=== PATIENT | male | born 1945 | race Caucasian/White ===

== ENCOUNTER 2022-08-21 11:44 | Emergency (ER) | payer OTHER, SELFPAY ==
[2022-08-21 11:46] VITALS: BP 180/120; PULSE 89; RESP 18; TEMP 36.8; O2SAT 95; BMI 25.8
--- NOTE | 2022-08-21 12:08 | ED.VIS.GI ---
HPI <LEESA Olivares - Last Filed: 08/21/22 22:00> HPI - GI History of Present Illness Chief Complaint: GI Bleed Narrative Narrative: Presents with bright red rectal bleeding that occurred earlier this morning while having a bowel movement. He states he noticed a small mass protruding from his anus that he was able to manually reduce. He states the bleeding has stopped since coming to the ED and he is not in any pain. He denies a history of hemorrhoids but states he does struggle with constipation at times. He denies abdominal pain, nausea, vomiting, fever, and diarrhea. PFSH <LEESA Olivares - Last Filed: 08/21/22 22:00> [facility] Home Medications NK 08/21/22 [History Last Taken Unknown] Allergy/AdvReac Type Severity Reaction Status Date / Time No Known Allergies Allergy Verified 08/21/22 11:45 Surgical History (Updated 08/21/22 @ 12:40 by Ghazal Borden) History of cataract surgery Social History Smoking Status: Former smoker ROS <LEESA Olivares - Last Filed: 08/21/22 22:00> ROS ED Constitutional Constitutional ED: Denies chills, fever(s) or sweats ENT ENT ED: Denies rhinorrhea or sore throat Cardiovascular Cardiovascular: Denies chest pain Respiratory/Chest Respiratory/Chest: Denies cough or dyspnea Gastrointestinal Gastrointestinal: Reports constipation and hematochezia; Denies abdominal pain, diarrhea, hematemesis, melena, nausea or vomiting Genitourinary Genitourinary ED: Denies dysuria or hematuria Musculoskeletal Musculoskeletal: Denies myalgias Integumentary Denies abscess, Abrasions or rash Neurologic Neurologic: Denies headache(s) or weakness Hematologic/Lymphatic Hematologic/Lymphatic: Denies easy bleeding or easy bruising EXAM <LEESA Olivares - Last Filed: 08/21/22 22:00> Physical Exam Const Vital Signs: 08/21/22 11:46 08/21/22 12:38 08/21/22 12:46 Temperature 98.2 F Temperature Source Temporal Pulse Rate 89 78 Pulse Rate [Lying] 78 Pulse Rate [Sitting (for 1 minute prior to obtaining)] 83 Pulse Rate [Standing (for 1 minute prior to obtaining)] 87 Respiratory Rate 18 18 Blood Pressure 180/120 H 157/89 H Blood Pressure [Lying] 157/89 H Blood Pressure [Sitting (for 1 minute prior to obtaining)] 146/101 H Blood Pressure [Standing (for 1 minute prior to obtaining)] 178/94 H Blood Pressure Mean 140 111 Blood Pressure Mean [Lying] 111 Blood Pressure Mean [Sitting (for 1 minute prior to obtaining)] 116 Blood Pressure Mean [Standing (for 1 minute prior to obtaining)] 122 Pulse Ox 95 95 Oxygen Delivery Method Room Air Room Air Positive well nourished HEENT Reports moist mucous membranes normocephalic and atraumatic Eyes PERRL and EOMs intact bilaterally Neck supple Resp normal respiratory effort and clear to auscultation bilaterally Cardio regular rate, regular rhythm and no murmurs GI non-tender, non-distended and no masses Auscultation: normoactive bowel sounds Palpation: Negative for hepatomegaly or splenomegaly Narrative: Rectal examination was performed. There was no active bleeding. Patient was not in any pain during this examination. No anal fissures seen. No external hemorrhoids visualized. Unable to palpate internal hemorrhoid. Back/Spine no CVA tenderness Extremity full ROM Neuro moves all extremities, no sensory deficits noted and gait normal Sensorium / Orientation: alert, oriented to person and oriented to place Motor Exam: strength 5/5 throughout Psych mental status grossly normal and thought process normal Skin no wounds Lesions: no lesions Rashes: no rashes <Aurelio Thacker MD - Last Filed: 08/23/22 07:01> Physical Exam Const Vital Signs: 08/21/22 11:46 08/21/22 12:38 08/21/22 12:46 Temperature 98.2 F Temperature Source Temporal Pulse Rate 89 78 Pulse Rate [Lying] 78 Pulse Rate [Sitting (for 1 minute prior to obtaining)] 83 Pulse Rate [Standing (for 1 minute prior to obtaining)] 87 Respiratory Rate 18 18 Blood Pressure 180/120 H 157/89 H Blood Pressure [Lying] 157/89 H Blood Pressure [Sitting (for 1 minute prior to obtaining)] 146/101 H Blood Pressure [Standing (for 1 minute prior to obtaining)] 178/94 H Blood Pressure Mean 140 111 Blood Pressure Mean [Lying] 111 Blood Pressure Mean [Sitting (for 1 minute prior to obtaining)] 116 Blood Pressure Mean [Standing (for 1 minute prior to obtaining)] 122 Pulse Ox 95 95 Oxygen Delivery Method Room Air Room Air [facility] <LEESA Olivares - Last Filed: 08/21/22 22:00> [facility] Narrative Medical decision making narrative: Patient's CBC and BMP came back normal. It is likely that his rectal bleeding was caused by internal hemorrhoids. He had no active bleeding here in the ED. orthostatics were normal. I feel safe with patient discharging home with close PCP follow-up. Patient is comfortable with plan. I advised patient to return if he experiences worsening of symptoms such as being unable to control rectal bleeding in the future. I also educated patient on ways to treat constipation at home such as increasing fiber intake and increasing water intake. Lab Data Attestation: I reviewed the patient's lab results. Labs: Laboratory Results - last 24 hr 08/21/22 08/21/22 12:46 12:46 WBC 9.3 RBC 5.02 Hgb 15.6 Hct 45.5 MCV 90.6 MCH 31.1 MCHC 34.3 RDW Std Deviation 40.8 RDW Coeff of Ivett 12.4 Plt Count 203 MPV 8.4 Immature Gran % (Auto) 0.300 Neut % (Auto) 68.6 Lymph % (Auto) 21.0 Cavalier % (Auto) 8.9 Eos % (Auto) 1.0 Baso % (Auto) 0.2 Absolute Neuts (auto) 6.4 Absolute Lymphs (auto) 1.96 Nucleated RBC % 0 Sodium 138 Potassium 4.2 Chloride 107 Carbon Dioxide 25.0 Anion Gap 6 BUN 26 H Creatinine 1.03 Estim Creat Clear Calc 54.20 Est GFR (MDRD) Af Amer 90 Est GFR (MDRD) Non-Af 74 BUN/Creatinine Ratio 25.2 H Glucose 103 Calcium 9.0 Total Bilirubin 0.80 AST 18 ALT 34 Alkaline Phosphatase 70 Total Protein 7.4 Albumin 3.9 Globulin 3.5 Albumin/Globulin Ratio 1.1 <Aurelio Thacker MD - Last Filed: 08/23/22 07:01> [facility] Narrative Medical decision making narrative: Patient's CBC and BMP came back normal. It is likely that his rectal bleeding was caused by internal hemorrhoids. He had no active bleeding here in the ED. orthostatics were normal. I feel safe with patient discharging home with close PCP follow-up. Patient is comfortable with plan. I advised patient to return if he experiences worsening of symptoms such as being unable to control rectal bleeding in the future. I also educated patient on ways to treat constipation at home such as increasing fiber intake and increasing water intake. I have personally performed a face to face assessment of the patient and have reviewed the JOSHUA Note. I performed a substantive portion of the visit including all aspects of the following. My menjivar findings include: History is bright red rectal bleeding-resolved Exam is afebrile. Vital signs noted. Regular rate and rhythm. Abdomen soft and nontender. No current rectal hemorrhage. Medical Decision Making check labs. Check orthostatics. [id number] medications for hemorrhoids. Follow-up primary care. Return instructions reviewed. Disposition is discharged home in stable condition. Other additions or changes: [None] Lab Data Labs: Laboratory Results - last 24 hr 08/21/22 08/21/22 12:46 12:46 WBC 9.3 RBC 5.02 Hgb 15.6 Hct 45.5 MCV 90.6 MCH 31.1 MCHC 34.3 RDW Std Deviation 40.8 RDW Coeff of Ivett 12.4 Plt Count 203 MPV 8.4 Immature Gran % (Auto) 0.300 Neut % (Auto) 68.6 Lymph % (Auto) 21.0 Cavalier % (Auto) 8.9 Eos % (Auto) 1.0 Baso % (Auto) 0.2 Absolute Neuts (auto) 6.4 Absolute Lymphs (auto) 1.96 Nucleated RBC % 0 Sodium 138 Potassium 4.2 Chloride 107 Carbon Dioxide 25.0 Anion Gap 6 BUN 26 H Creatinine 1.03 Estim Creat Clear Calc 54.20 Est GFR (MDRD) Af Amer 90 Est GFR (MDRD) Non-Af 74 BUN/Creatinine Ratio 25.2 H Glucose 103 Calcium 9.0 Total Bilirubin 0.80 AST 18 ALT 34 Alkaline Phosphatase 70 Total Protein 7.4 Albumin 3.9 Globulin 3.5 Albumin/Globulin Ratio 1.1 Discharge Plan Triage Chief Complaint: GI Bleed ED Midlevel Provider: Lizeth Crews ED Provider: Aurelio Thacker Dx/Rx/DC Orders Clinical Impression: Bright red rectal bleeding, Hemorrhoid Instructions: ED Hemorrhoids, ED Lower GI Bleeding (Stable) Prescriptions: No Action NK Primary Care Provider: Lui Lund Referrals: Lui Lund PA-C [Primary Care Provider] - 5-7 Days NOT,DEFINED [Non-Staff] - Activity Restrictions/Additional Instructions: Please follow-up with PCP for hemorrhoid treatment. Seek medical attention if any new or worsening symptoms. Increase fiber intake as well as water intake. Disposition Disposition: Home, Self Care Discharge Date/Time: 08/21/22 14:16
[2022-08-21 12:38] VITALS: BP 157/89; PULSE 78; RESP 18; O2SAT 95
[2022-08-21 12:46] VITALS: BP 146/101; BP 157/89; BP 178/94; PULSE 78; PULSE 83; PULSE 87
[2022-08-21 12:57] LABS: Absolute Lymphocyte Count 1.96 X10^3/uL (0.83-4.51); Absolute Neutrophil Count 6.4 X10^3/uL (2.0-7.7); Basophil# 0.02 X10^3/uL; Basophil% 0.2 % (0-1); Eosinophil# 0.09 X10^3/uL; Hematocrit 45.5 % (40-54); Hemoglobin 15.6 g/dL (13.0-16.5); Lymphocyte # 1.96 X10^3/ul (0.83-4.51); Mean Corp Hgb Conc 34.3 g/dL (32-36); Mean Corpuscular Hgb 31.1 pg (27.0-32.0); Mean Corpuscular Volume 90.6 fL (80-94); Mean Platelet Vol. 8.4 fl (6.2-12.0); Monocyte# 0.83 X10^3/uL; Monocyte% 8.9 % (0-10); NRBC Flagged by Analyzer 0 % (0-5); Neutrophil # 6.39 X10^3/uL (2.7-7.7); Neutrophil % 68.6 % (47-70); Platelet Count 203 K/mm3 (150-450); RBC Distribution Width CV 12.4 % (11.6-14.6); RBC Distribution Width SD 40.8 fl (35.1-43.9); Red Blood Count 5.02 M/mm3 (4.6-6.2); White Blood Count 9.3 K/mm3 (4.4-11.0)
[2022-08-21 13:14] LABS: ALB/GLOB Ratio 1.1 RATIO (0.9-2.4); AST(SGOT) 18 U/L (15-37); Alanine Aminotransfer ALT/SGPT 34 U/L (16-61); Albumin, Serum 3.9 g/dL (3.2-5.0); Alkaline Phosphatase 70 U/L (45-117); Anion Gap 6 (5-15); BUN 26 mg/dL (7-18); BUN/Creat Ratio 25.2 RATIO (10-20); Chloride 107 mmol/L (98-107); Creatinine, Serum 1.03 mg/dL (0.70-1.30); EST Glomerular Filtration Rate 74 mL/min (>60); Est Glom Filt Rate - Afr Amer 90 mL/min (>60); Globulin 3.5 g/dL (2.2-4.2); Glucose 103 mg/dL (74-106); Potassium 4.2 mmol/L (3.5-5.1); Protein, Total 7.4 g/dL (6.4-8.2); Sodium Level 138 mmol/L (136-145)
== END 2022-08-21 14:16 | disposition home or self-care (01) ==
PROVIDERS: Emergency Provider Emergency Medicine; PCP Physician Assistant; Visit Provider Emergency Medicine
DX: K64.9 Unspecified hemorrhoids (principal); K92.2 Gastrointestinal hemorrhage, unspecified; Z87.891 Personal history of nicotine dependence; K59.00 Constipation, unspecified
CPT/HCPCS: 80053; 85025; 93005; 99284; A4216

== ENCOUNTER 2023-02-06 06:32 | Inpatient (IN) | payer OTHER, SELFPAY ==
[2023-02-06] VITALS (23 sets, daily range): BP systolic 109–153; BP diastolic 60–88; PULSE 66–116; RESP 16–27; TEMP 35.9–36.9; O2SAT 92–100; BMI 25.0; BMI 23.6
--- NOTE | 2023-02-06 07:15 | RAD_ITS ---
INDICATION: chest pain EXAMINATION/TECHNIQUE: X-RAY - XR Chest 2 Views COMPARISON: None. FINDINGS: LINES/DEVICES: None. LUNGS: Bilateral lower lung atelectasis versus infiltrates. No evidence of a pleural effusion or a pneumothorax. MEDIASTINUM AND CARDIOVASCULAR STRUCTURES: Cardiac silhouette is normal in size and contour. Mediastinum is unremarkable. BONES AND SOFT TISSUES: No acute abnormality. RAD/Chest PA and Lateral IMPRESSION: Bibasilar atelectasis versus infiltrates. Electronically Signed: Ck Mon DO at 7:30 EDT ,
[2023-02-06 07:17] LABS: Absolute Lymphocyte Count 0.97 X10^3/uL (0.83-4.51); Absolute Neutrophil Count 5.9 X10^3/uL (2.0-7.7); Basophil# 0.04 X10^3/uL; Basophil% 0.5 % (0-1); Eosinophil# 0.11 X10^3/uL; Eosinophils% 1.4 % (0-5); Hematocrit 40.3 % (40-54); Hemoglobin 13.2 g/dL (13.0-16.5); Lymphocyte # 0.97 X10^3/ul (0.83-4.51); Lymphocyte % 12.6 % (19-41); Mean Corp Hgb Conc 32.8 g/dL (32-36); Mean Corpuscular Hgb 28.8 pg (27.0-32.0); Mean Platelet Vol. 8.3 fl (6.2-12.0); Monocyte# 0.61 X10^3/uL; Monocyte% 7.9 % (0-10); NRBC Flagged by Analyzer 0 % (0-5); Neutrophil # 5.94 X10^3/uL (2.7-7.7); Neutrophil % 77.2 % (47-70); Platelet Count 226 K/mm3 (150-450); RBC Distribution Width CV 13.2 % (11.6-14.6); RBC Distribution Width SD 42.6 fl (35.1-43.9); Red Blood Count 4.58 M/mm3 (4.6-6.2); White Blood Count 7.7 K/mm3 (4.4-11.0)
--- NOTE | 2023-02-06 07:18 | EX.ED.DYSGE1 ---
HPI History of Present Illness Chief Complaint: Chest Pain Narrative Narrative: Patient is a 77-year-old male who reports no significant past medical history and states he takes no daily medications. He states yesterday evening he felt just not right but was still able to go to sleep. He states he woke around 3 in the morning with midsternal to left-sided chest pain. He states with the pain he had nausea and diaphoresis and shortness of breath. He states over the pain did not radiate towards his neck arm or back. He states the pain persisted for a few hours and therefore he called EMS. He states when EMS arrived and they treated him with an IV as well as aspirin and nitro that the pain resolved. The patient remains pain-free upon arrival to the ER but states he has a great concern that this was a heart attack and wants that to be ruled out and therefore presents for evaluation. PFSH PFS Home Medications NK 08/21/22 [History Last Taken Unknown] Allergy/AdvReac Type Severity Reaction Status Date / Time No Known Allergies Allergy Verified 02/06/23 06:39 Surgical History History of cataract surgery Social History Smoking Status: Never smoker ROS [facility] ED Constitutional Constitutional ED: Reports sweats; Denies chills or fever(s) ENT ENT ED: Denies sore throat Cardiovascular Cardiovascular: Reports chest pain and racing heartbeat; Denies palpitations Respiratory/Chest Respiratory/Chest: Reports dyspnea; Denies cough Gastrointestinal Gastrointestinal: Reports nausea; Denies abdominal pain, diarrhea or vomiting Genitourinary Genitourinary ED: Denies dysuria Musculoskeletal Musculoskeletal: Denies myalgias Integumentary Denies rash Neurologic Neurologic: Denies headache(s) Hematologic/Lymphatic Hematologic/Lymphatic: Denies easy bleeding or easy bruising EXAM Physical Exam Const Vital Signs: 02/06/23 06:33 02/06/23 06:37 02/06/23 06:46 Temperature 96.6 F L Temperature Source Temporal Pulse Rate 116 H Respiratory Rate 27 H Respiratory Effort Short of Breath Blood Pressure 153/88 H Blood Pressure Mean 109 Pulse Ox 100 Oxygen Delivery Method Room Air Positive well nourished and well developed General Appearance ED: well developed HEENT Reports moist mucous membranes Eyes PERRL and EOMs intact bilaterally General Eye ED: Negative for scleral icterus Neck supple and no JVD Chest Wall Chest Narrative: There is reproducible pain of the chest wall along the left side of sternum rib regions 4-6 without bony deformity or crepitance noted. No overlying soft tissue changes to suggest trauma or infection Resp normal respiratory effort and clear to auscultation bilaterally Resp Narrative: No pleuritic chest pain reported Cardio regular rate and regular rhythm Rate: other Other Details: Radial pulses are plus 2 out of 4 bilaterally are equal and symmetric GI normal to inspection, nondistended, normoactive bowel sounds, non-tender, non-distended and no masses GI Narrative: No voluntary guarding or rigidity no pulsatile mass or fluid wave Auscultation: normoactive bowel sounds Palpation: soft Extremity normal to inspection Extremity Narrative: No asymmetric edema no pitting edema negative Homans' sign bilaterally Neuro oriented x3 and CN's II-XII intact bilaterally Sensorium / Orientation: alert Psych mental status grossly normal Skin no rashes or lesions noted Skin Narrative: No overlying soft tissue changes to suggest trauma or infection MDM MDM MDM Narrative Medical decision making narrative: Patient arrived to the ER with resolution of symptoms after aspirin and nitro. He denies risk factors such as hypertension hyperlipidemia smoking or family history of cardiac disease. However as he reported midsternal chest discomfort that caused nausea shortness of breath and diaphoresis there is concern this could be cardiac and therefore cardiac work-up was obtained. Differential diagnosis includes acute coronary syndrome unstable angina pneumonia pneumothorax or anxiety. At this time the patient's basic work-up was ordered which included CBC basic metabolic magnesium and troponin as well as a chest x-ray to check for lung pathology. As he was states he was given aspirin and nitro per squad I do not feel there is need to provide any further unless pain returns. Patient will be signed out to the oncoming day physician Dr. Aleman pending the troponin results. I feel that if patient remains pain-free and his initial and delta troponin are within normal limits then he should be safe for discharge but if they are elevated based on his advanced age and presentation he may need admitted for further. History & Record Review Discussion w/independent historian: EMS personnel, Patient and Significant other Lab Data Attestation: I reviewed the patient's lab results. Labs: Laboratory Results - last 24 hr 05/05/23 07:05 WBC 7.7 RBC 4.58 L Hgb 13.2 Hct 40.3 MCV 88.0 MCH 28.8 MCHC 32.8 RDW Std Deviation 42.6 RDW Coeff of Ivett 13.2 Plt Count 226 MPV 8.3 Immature Gran % (Auto) 0.400 Neut % (Auto) 77.2 H Lymph % (Auto) 12.6 L [place] % (Auto) 7.9 Eos % (Auto) 1.4 Baso % (Auto) 0.5 Absolute Neuts (auto) 5.9 Absolute Lymphs (auto) 0.97 Nucleated RBC % 0 Radiography Diagnostic Testin view chest x-ray as interpreted by the emergency medicine physician reveals hazy opacities in the right lower lobe concerning for developing pneumonia Discharge Plan Triage Chief Complaint: Chest Pain ED Provider: Sammy Lorenzo Dx/Rx/DC Orders Prescriptions: No Action NK Primary Care Provider: Lui Lund Referrals: Lui Lund PA-C [Primary Care Provider] -
[2023-02-06 07:35] LABS: Anion Gap 7 (5-15); BUN 29 mg/dL (7-18); BUN/Creat Ratio 27.9 RATIO (10-20); Calcium,Total 8.5 mg/dL (8.5-10.1); Chloride 107 mmol/L (98-107); Creatinine, Serum 1.04 mg/dL (0.70-1.30); EST Glomerular Filtration Rate 73 mL/min (>60); Est Glom Filt Rate - Afr Amer 89 mL/min (>60); Estimated Creatinine Clearance 52.83 ml/min; Glucose 149 mg/dL (74-106); Magnesium 2.3 mg/dL (1.6-2.6); Potassium 4.2 mmol/L (3.5-5.1); Sodium Level 140 mmol/L (136-145); Troponin-I HS 104 pg/mL (3.0-78.0)
[2023-02-06] MEDS: Nitroglycerin Oint 1 INCH PACKET TRANSDERM. (08:03)
--- NOTE | 2023-02-06 08:04 | HP.PCM.HOS_ITS ---
[facility] - General General Date of Admission: 02/06/23 Date of Service: 02/06/23 Chief Complaint: Chest pain started this morning about 3 AM. HPI Narrative MAULIK DUONG, is a 77 M with history of hypertension but not on medication was brought to ED by EMS for chest pressure that is started about 3 AM. Patient was awake. He walked inside his hours to get relief but he felt pressure and tightness over left precordial region with shortness of breath. He stated he felt he could not breathe. Chest pain was mainly localized without radiation to arm neck or back. He also felt mild diaphoretic nauseous but no vomiting or syncope. EMS gave aspirin, nitroglycerin and fentanyl. As per EMS vital, blood pressure was high 170/114, heart rate 121 regular sinus tachycardia. In ED, twelve-lead EKG was done which shows sinus tachycardia 116 bpm, QTc 480 ms. Repeat EKG on the floor normal sinus rhythm no significant ST-T changes suggestive of ischemia. QTc 479 ms. No prior EKG to compare. First troponin was high. Patient further admitted. Past medical history: Hypertension not on medication. No home medication. Past surgical history: No significant history. Social history: Patient denies chronic alcohol use or substance use. He smoked 4 to 5 cigarettes for less than 2 years. He restarted and quit smoking in his early 20s. No significant history of smoking. Family history: He states his father or paternal uncle had heart problem but does not know the details whether ID or CHF. FORMERLY [facility] Home Medications NK 08/21/22 [History Last Taken Unknown] Allergy/AdvReac Type Severity Reaction Status Date / Time No Known Allergies Allergy Verified 02/06/23 06:39 Surgical History History of cataract surgery Social History Smoking Status: Never smoker ROS ROS Narrative Constitutional: Reports acute fatigue and weakness due to chest pain HEENT: Reports systems reviewed and no addt'l complaints, except as documented Respiratory/Chest: As described in HPI. Denies history of COPD/emphysema or asthma. Gastrointestinal: Denies coffee ground emesis, hematemesis or vomiting Genitourinary: Denies burning urination or new urinary tract symptoms Musculoskeletal: Reports joint pain and limited range of motion Neurologic: Denies seizure-like activity. No prior strokelike symptoms skin: No ulcer. No rash Endocrinology: Reports systems reviewed and no addt'l complaints, except as documented Hematologic/Lymphatic: Reports systems reviewed and no addt'l complaints, except as documented Rest 14 ROS are negative except as mentioned in HPI Vital Signs Vital Signs Vital Signs: 02/06/23 06:33 02/06/23 06:37 02/06/23 06:46 Temperature 96.6 F L Temperature Source Temporal Pulse Rate 116 H Respiratory Rate 27 H Respiratory Effort Short of Breath Blood Pressure 153/88 H Blood Pressure Mean 109 Pulse Ox 100 Oxygen Delivery Method Room Air 02/06/23 07:33 Temperature Temperature Source Pulse Rate 83 Respiratory Rate 18 Respiratory Effort Blood Pressure 125/87 H Blood Pressure Mean 99 Pulse Ox 96 Oxygen Delivery Method Weight Weight: 155 lb 3.287 oz Body Mass Index (BMI) 25.0 Physical Exam Narrative Physical exam General: Alert, Oriented x3, Cooperative HEENT: Atraumatic, PERRLA, EOMI, Normocephalic Oral: No Gingival or Mucosal Lesions/ Ulcerations Neck: Supple, No JVD, Negative Carotid Bruits Lungs: Air entry equal in bilateral lung bases. No crepitation/rhonchi Cardiovascular: Regular rate, Regular Rhythm, Normal S1, Normal S2, systolic murmur over cardiac apex and LLSB and right second ICS. Abdomen: Bowel Sounds Present, Soft, Non Tender, Non-Distended : No renal angle tenderness. No suprapubic tenderness. Extremities: No edema, Capillary Refill Less than 3 Seconds Skin: No rashes, No breakdown Musculoskeletal: No Tenderness to Palpation of Joints or Extremities. ROM in tact and full. Muscle strength 5/5 at major joints. Neurological: Cranial nerves II-XII grossly intact, DTR 2+/4 and Symmetrical, Neuro grossly intact Psych/Mental Status: Normal Affect, Appropriate. Results Lab / Micro Data Result Diagrams: 02/06/23 07:05 02/06/23 07:05 Labs: Laboratory Results - last 24 hr 02/06/23 07:05: WBC 7.7, RBC 4.58 L, Hgb 13.2, Hct 40.3, MCV 88.0, MCH 28.8, MCHC 32.8, RDW Std Deviation 42.6, RDW Coeff of Ivett 13.2, Plt Count 226, MPV 8.3, Immature Gran % (Auto) 0.400, Neut % (Auto) 77.2 H, Lymph % (Auto) 12.6 L, Baldwin % (Auto) 7.9, Eos % (Auto) 1.4, Baso % (Auto) 0.5, Absolute Neuts (auto) 5.9, Absolute Lymphs (auto) 0.97, Nucleated RBC % 0 02/06/23 07:05: Sodium 140, Potassium 4.2, Chloride 107, Carbon Dioxide 26.0, Anion Gap 7, BUN 29 H, Creatinine 1.04, Estim Creat Clear Calc 52.83, Est GFR (MDRD) Af Amer 89, Est GFR (MDRD) Non-Af 73, BUN/Creatinine Ratio 27.9 H, Glucose 149 H, Calcium 8.5, Magnesium 2.3, Troponin I High Sens 104 H Radiology Impression Chest X-Ray 02/06/23 07:15 IMPRESSION: Bibasilar atelectasis versus infiltrates. Electronically Signed: Ck Mon DO at 7:30 EDT , Assessment & Plan Assessment/Plan (1) NSTEMI (non-ST elevated myocardial infarction): PLAN: Plan This is 77-year-old gentleman being admitted for classic angina type pain acid with shortness of breath consistent with non-STEMI. 1. Chest pain/unstable angina, progressed to non-STEMI: Patient is being a dmitted in PCU. Twelve-lead EKG twice does not show acute ST-T changes history of ischemia. Progressive increase in troponin from 104-243. Patient is started on IV heparin drip with bolus and Plavix. Patient already had 325 mg aspirin by EMS. Continue baby aspirin from tomorrow AM. Nitro ointment 1% every 6 hourly for 24 hours and then as needed. Metoprolol 25 mg twice daily. Lisinopril 2.5 mg twice daily. I asked the patient his and son near the bedside and they are agreeable for going for heart cath. Dairy Helper consulted and discussed with Dr. Dubose. Fasting profile and TSH tomorrow AM. 2. Hypertension: Blood pressure was high systolic in the 170s in EMS and also in ED. More recent pressure is 130/80 controlled. Rest continue medications as mentioned above. 3. Hyperglycemia: Glucose 149. Accu-Cheks before meals and at bedtime and cover with Humalog sliding scale. A1c tomorrow AM. VTE prophylaxis: Patient on IV heparin drip. Living will/advanced directive/end of life care: Patient does not have living will or advanced directive. He does not have designated power of employment law attorney of health but his and sons are next to him. After discussion of benefits /risks procedures involved with full code, DNR CC arrest and DNR CC, the patient opted for full code. Patient does want artificial life support including intubation, tube feed, ventilator and/chest compression, central venous catheter, vasopressor and DC shock if needed Total time spent in [id number] encounter in discussion of advanced directive 17 minutes. Laboratory Results 02/06/23 07:05: WBC 7.7, RBC 4.58 L, Hgb 13.2, Hct 40.3, MCV 88.0, MCH 28.8, MCHC 32.8, RDW Std Deviation 42.6, RDW Coeff of Ivett 13.2, Plt Count 226, MPV 8.3 , Immature Gran % (Auto) 0.400, Neut % (Auto) 77.2 H, Lymph % (Auto) 12.6 L, Baldwin % (Auto) 7.9, Eos % (Auto) 1.4, Baso % (Auto) 0.5, Absolute Neuts (auto) 5.9, Absolute Lymphs (auto) 0.97, Nucleated RBC % 0 02/06/23 07:05: Sodium 140, Potassium 4.2, Chloride 107, Carbon Dioxide 26.0, Anion Gap 7, BUN 29 H, Creatinine 1.04, Estim Creat Clear Calc 52.83, Est GFR (MDRD) Af Amer 89, Est GFR (MDRD) Non-Af 73, BUN/Creatinine Ratio 27.9 H, Glucose 149 H, Calcium 8.5, Magnesium 2.3, Troponin I High Sens 104 H 02/06/23 07:05: PT 14.8, INR 1.2, APTT 31.9 02/06/23 09:05: Magnesium 2.4, Troponin I High Sens 243 H* Clinical Impression(s) from Imaging Studies Chest X-Ray 02/06/23 07:15 IMPRESSION: Bibasilar atelectasis versus infiltrates. Echocardiogram 02/06/23 09:47 Interpretation Summary The left ventricular ejection fraction is 50 %. Mild lateral hypokinesis. Diastolic function is indeterminate. The left atrium is severely enlarged. Mild diffuse mitral valve thickening. Moderate (2+) eccentric mitral valve insufficiency. Mild aortic stenosis. Mild (1+) aortic valve insufficiency. Bubble contrast study is negative for PFO/ASD. Clinical Impression(s) from Imaging Studies Chest X-Ray 02/06/23 07:15 IMPRESSION: Bibasilar atelectasis versus infiltrates. Charges/Coding Visit Charges Inpatient E&M: 86303 Init Hosp L3 Procedures Hospitalists Procedures: 21269 Advncd Care Plan 30 Min
[2023-02-06 09:37] LABS: Magnesium 2.4 mg/dL (1.6-2.6); Troponin-I HS 243 pg/mL (3.0-78.0)
--- NOTE | 2023-02-06 09:47 | ECHOCS_ITS ---
Version 2 Reason For Study: Chest Pain Procedure This was a 2D Doppler, Color Flow transthoracic echocardiogram. The study was technically difficult. Contrast injection was performed. Exam performed portable in patient room. Left Ventricle Normal size and thickness. The left ventricular ejection fraction is 50 %. Diastolic function is indeterminate. Right Ventricle Normal right ventricle. Atria The left atrium is severely enlarged. Normal right atrium. Bubble contrast study is negative for PFO/ASD. Mitral Valve Mild diffuse mitral valve thickening. Moderate (2+) eccentric mitral valve insufficiency. Tricuspid Valve Normal tricuspid valve. Aortic Valve Mild focal aortic valve thickening. Mild aortic stenosis. Mild (1+) aortic valve insufficiency. Pulmonic Valve The pulmonic valve is not well visualized. Great Vessels Normal aortic root. Pericardium/Pleural No pericardial effusion. Medication Diluted definity 3ml given slow IV push to enhance endocardial definition. Performed a rapid injection of agitated mix of 9 cc saline and 1cc air to assess for atrial septal defect. MMode/2D Measurements & Calculations LVIDd: 5.5 cm IVSd: 0.95 cm LA dimension: 4.6 cm LVIDs: 3.9 cm LVPWd: 0.89 cm RVDd: 3.7 cm FS: 28.9 % LAV(MOD-bp): 71.6 ml LVAd ap4: 44.2 cm2 SV(MOD-sp4): 69.5 ml LAV(MOD-bp) Indexed: 40.9 ml/m2 LVLd ap4: 9.1 cm LAV(MOD-sp2): 69.7 ml EDV(MOD-sp4): 175.0 ml LAV(MOD-sp4): 71.0 ml EDV(sp4-el): 181.7 ml LVAs ap4: 32.3 cm2 LVLs ap4: 8.1 cm ESV(MOD-sp4): 105.4 ml ESV(sp4-el): 108.9 ml EF(MOD-sp4): 39.7 % EF(sp4-el): 40.1 % SV(sp4-el): 72.8 ml LA A4 area: 23.4 cm2 RA A4 area: 16.7 cm2 TAPSE_phl: 2.2 cm Time Measurements MV dec time: 0.14 sec Doppler Measurements & Calculations MV E max matt: 88.2 cm/sec Lat Peak E' Matt: 8.2 cm/sec Med Peak E' Matt: 5.8 cm/sec MV A max matt: 67.8 cm/sec E/E' lat: 10.7 E/E' med: 15.2 MV E/A: 1.3 MV V2 max: 85.2 cm/sec Ao V2 max: 182.1 cm/sec MV max P.9 mmHg MV dec slope: 615.0 cm/sec2 Ao max P.3 mmHg MV V2 mean: 58.8 cm/sec Ao V2 mean: 138.4 cm/sec MV mean P.6 mmHg Ao mean P.4 mmHg MV V2 VTI: 23.0 cm Ao V2 VTI: 37.2 cm AV (velocity ratio): 0.57 AI max matt: 372.7 cm/sec LV V1 max: 93.2 cm/sec MR max matt: 530.4 cm/sec AI max P.6 mmHg LV V1 max P.5 mmHg MR max P.5 mmHg LV V1 mean P.1 mmHg MR mean matt: 410.6 cm/sec AI dec slope: 280.4 cm/sec2 LV V1 mean: 66.5 cm/sec MR mean P.3 mmHg AI P1/2t: 389.3 msec LV V1 VTI: 21.1 cm MR VTI: 172.5 cm PA V2 max: 95.7 cm/sec ECHO/Echo Complete W/ Contrast Interpretation Summary The left ventricular ejection fraction is 50 %. Mild lateral hypokinesis. Diastolic function is indeterminate. The left atrium is severely enlarged. Mild diffuse mitral valve thickening. Moderate (2+) eccentric mitral valve insufficiency. Mild aortic stenosis. Mild (1+) aortic valve insufficiency. Bubble contrast study is negative for PFO/ASD. Ordering Physician: Edenilson Gambino Performed By: Srinivas Mcdonough RCS
[2023-02-06 10:07] LABS: International Normalized Ratio 1.2; Prothrombin Time (Protime)PT. 14.8 SECONDS (11.7-14.9)
[2023-02-06 10:08] LABS: Partial Thromboplast Time 31.9 Seconds (24.1-36.2)
[2023-02-06] MEDS: Lactated Ringers 1,000 ML 75 ML IV (10:43)
[2023-02-06] MEDS: HEPARIN/D5w 25,000 UNITS 25,000 UNITS/250 ML IV.SOLN. 8 UNITS CONT INF (10:44)
[2023-02-06] MEDS: Heparin Injection (Vial) 5,000 UNIT/ML VIAL 4000 UNIT IV (10:45)
[2023-02-06] MEDS: Metoprolol Tartrate 25 MG Tablet 12.5 MG PO (10:46)
[2023-02-06] MEDS: Nitroglycerin Oint 1 INCH PACKET TD ×3 (10:47→23:28)
--- NOTE | 2023-02-06 12:54 | NURSING ---
Message left on answering service for family to call hospital.
--- NOTE | 2023-02-06 12:57 | PCM.CONS.C ---
Assessment & Plan Assessment/Plan (1) NSTEMI (non-ST elevated myocardial infarction): PLAN: Continue aspirin. Start on Plavix. Discussed with patient. Coronary angiography with possible revascularization offered. Risks and benefits explained. He understands these and wishes to proceed. We will schedule him for coronary angiography. (2) Hypertension: PLAN: Start on metoprolol. KARLA inhibitor. HPI Consult Data Date of Consult: 02/06/23 HPI Narrative Reason for Consultation: Chest pain HPI Narrative: According to the patient, he woke up from sleep with left-sided chest discomfort. Also felt diaphoretic. Question of radiation to the left arm. No prior history of angina pectoris. Presently pain-free. Troponins were checked. These are mildly elevated ruling him in for non-ST elevation myocardial infarction. [facility] Home Medications NK 08/21/22 [History Last Taken Unknown] Allergy/AdvReac Type Severity Reaction Status Date / Time No Known Allergies Allergy Verified 02/06/23 06:39 Surgical History History of cataract surgery Social History Smoking Status: Never smoker Physical Exam Narrative Comfortable. No distress. Heart sounds 1 and 2 are normal. No murmurs or rubs are noted. Chest clear to auscultation bilaterally. Abdomen soft. Alert oriented x3. No ankle edema noted. Risk Stratification Risk Stratification Applicable: No Objective Data Vital Signs: Vital Signs Temp Pulse Resp BP Pulse Ox O2 Del Method 98.2 F 83 16 130/80 H 93 Room Air 02/06/23 08:48 02/06/23 10:47 02/06/23 08:48 02/06/23 10:47 02/06/23 08:48 02/06/23 09:05 Oxygen Delivery Method Room Air Weight: 146 lb 6.191 oz Body Mass Index (BMI) 23.6 Lab / Micro Data Attestation: I reviewed the patient's lab results. Result Diagrams: 02/06/23 07:05 02/06/23 07:05 Labs: Laboratory Results - last 24 hr 02/06/23 07:05: WBC 7.7, RBC 4.58 L, Hgb 13.2, Hct 40.3, MCV 88.0, MCH 28.8, MCHC 32.8, RDW Std Deviation 42.6, RDW Coeff of Ivett 13.2, Plt Count 226, MPV 8.3, Immature Gran % (Auto) 0.400, Neut % (Auto) 77.2 H, Lymph % (Auto) 12.6 L, [place] % (Auto) 7.9, Eos % (Auto) 1.4, Baso % (Auto) 0.5, Absolute Neuts (auto) 5.9, Absolute Lymphs (auto) 0.97, Nucleated RBC % 0 02/06/23 07:05: Sodium 140, Potassium 4.2, Chloride 107, Carbon Dioxide 26.0, Anion Gap 7, BUN 29 H, Creatinine 1.04, Estim Creat Clear Calc 52.83, Est GFR (MDRD) Af Amer 89, Est GFR (MDRD) Non-Af 73, BUN/Creatinine Ratio 27.9 H, Glucose 149 H, Calcium 8.5, Magnesium 2.3, Troponin I High Sens 104 H 02/06/23 07:05: PT 14.8, INR 1.2, APTT 31.9 02/06/23 09:05: Magnesium 2.4, Troponin I High Sens 243 H* Rhythm Strip Rhythm Strip: Sinus Rhythm Cardiology Labs/Tests 02/06/23 07:05: WBC 7.7, RBC 4.58 L, Hgb 13.2, Hct 40.3, MCV 88.0, MCH 28.8, MCHC 32.8, Plt Count 226, MPV 8.3, Immature Gran % (Auto) 0.400, Neut % (Auto) 77.2 H, Lymph % (Auto) 12.6 L, [place] % (Auto) 7.9, Eos % (Auto) 1.4, Baso % (Auto) 0.5, Absolute Neuts (auto) 5.9, Nucleated RBC % 0 02/06/23 07:05: Sodium 140, Potassium 4.2, Chloride 107, Carbon Dioxide 26.0, Anion Gap 7, BUN 29 H, Creatinine 1.04, Est GFR (MDRD) Af Amer 89, Est GFR (MDRD) Non-Af 73, BUN/Creatinine Ratio 27.9 H, Glucose 149 H, Calcium 8.5, Magnesium 2.3 02/06/23 07:05: PT 14.8, INR 1.2, APTT 31.9 02/06/23 09:05: Magnesium 2.4 Rhythm: EKG: Normal sinus rhythm. No ischemic changes. ECHO: LVEF 45 to 50%. Lateral hypokinesis. Stress Test: Cardiac Cath: PCI: CT Surgery: Holter monitor: EPS: PPM: CXR: Chest CT Scan: Radiography Diagnostic Testing: Radiology Impression Chest X-Ray 02/06/23 07:15 IMPRESSION: Bibasilar atelectasis versus infiltrates. Electronically Signed: Ck Mon DO at 7:30 EDT , Echocardiogram 02/06/23 09:47 Interpretation Summary The left ventricular ejection fraction is 50 %. Mild lateral hypokinesis. Diastolic function is indeterminate. The left atrium is severely enlarged. Mild diffuse mitral valve thickening. Moderate (2+) eccentric mitral valve insufficiency. Mild aortic stenosis. Mild (1+) aortic valve insufficiency. Ordering Physician: Edenilson Gambino Performed By: Srinivas Mcdonough RCS
--- NOTE | 2023-02-06 13:00 | NURSING ---
Son returned call and was informed of heart cath at 1400. Son will attempt to be here.
[2023-02-06 14:23] LABS: Cholesterol 139 mg/dL (200); High Density Lipoprotein 43 mg/dL; Triglycerides 117 mg/dL; Troponin-I HS 375 pg/mL (3.0-78.0); Very Low Density Lipoprotein 23 mg/dL (5-40)
--- NOTE | 2023-02-06 15:28 | CL.D_ITS ---
Patient Name: MAULIK DUONG Study Date: 02/06/2023 Performing: Jami Dubose MD Ht: 66 inches 167.64 cm : 1945 Wt: 146.39 lbs 66.4 kg Age: 77 Gender: male BSA: 1.75 PROCEDURE(S) PERFORMED [id number])LHC/COR/LV CLINICAL PROFILE AND INDICATIONS Indications: ACS <= 24 hrs Heart Failure: None CAD Presentations: Non-STEMI. Symptom onset Date/Time: Time Not Available CONCLUSIONS 80% Prox to Mid LAD 80% Prox to Mid LCX; 95% ostial OM1 RECOMMENDATIONS DESCRIPTION OF PROCEDURE The patient arrived to the procedure lab. The risks and benefits of the procedure as well as a full description of our services here and current unavailability of surgical backup were fully explained to the patient and/or their significant other prior to the catheterization. The Timeout was completed, verifying the correct patient and procedure. The patient's procedural site was prepped and draped in the usual fashion. Local anesthetic was given subcutaneously to right radial region with Lidocaine 2%. Using a modified Seldinger technique, arterial access was obtained via the right radial artery, a 6Fr sheath was inserted. Left Coronary Artery selective angiography was performed in multiple views using a 5 Fr. 4.0 [place] catheter. Right Coronary Artery selective angiography was then performed in multiple views using a 5 Fr. 4.0 [place] catheter.The arterial sheath was pulled and a TR Band was applied for hemostasis. 10cc air inserted. CORONARY ANGIOGRAPHY DOMINANCE: Right Dominant LEFT HEART ASSESSMENT Left Ventricular Ejection Fraction: Not assessed LEFT MAIN: Angiographically normal LEFT ANTERIOR DESCENDING ARTERY: LAD: Tubular 80% Proximal lesion in LAD CIRCUMFLEX ARTERY: CIRCUMFLEX: Tubular 80% Proximal lesion in Circumflex OM 1: Tubular 95% Ostial lesion in 1st OM RIGHT CORONARY ARTERY: RCA: Tubular 30% Mid lesion in RCA COMPLICATIONS No Complications PROCEDURE MEDICATIONS Fentanyl 25 mcg IV Versed 0.5 mg IV Oxygen: 2 L/min via nasal cannula Heparin 25,000u / 250ml D5W @ 0 u/hr discontinued 02/06/2023 14:44:46 Heparin given IA 02/06/2023 14:52:52 Verapamil 2.5mg, Ntg 200mcgs, 2000 units of Heparin given IA 02/06/2023 14:52:52 SUMMARY OF HEMODYNAMIC DATA Time AIR REST ECG 14:41:24 AO 120/62 (86) SA 14:58:50 Signed By Jami Dubose MD On 02/06/2023 15:27:38 Jami Dubose MD
[2023-02-06] MEDS: Metoprolol Tartrate 25 MG Tablet PO ×2 (15:47→21:25)
[2023-02-06] MEDS: 0.9% Normal Saline 1,000 ML 100 ML IV (15:47)
[2023-02-06 16:45] LABS: Bedside Glucose 115 mg/dL (74-106)
[2023-02-06] MEDS: Atorvastatin Calcium 40 MG Tablet PO (21:25)
[2023-02-06] MEDS: Lisinopril 2.5 MG Tablet PO (21:25)
[2023-02-06] MEDS: Senna/Docusate Sodium 1 Tablet 2 TABLET PO (21:34)
[2023-02-06 22:00] LABS: Bedside Glucose 123 mg/dL (74-106)
[2023-02-06] MEDS: MELATONIN 3 MG TABLET PO (22:46)
[2023-02-07] VITALS (9 sets, daily range): BP systolic 106–136; BP diastolic 63–79; PULSE 64–76; RESP 16–18; TEMP 36.2–36.7; O2SAT 92–96; BMI 23.6
--- NOTE | 2023-02-07 06:07 | EKG12_ITS ---
Test Reason : CP Blood Pressure : / mmHG Vent. Rate : 116 BPM Atrial Rate : 116 BPM P-R Int : 152 ms QRS Dur : 082 ms QT Int : 346 ms P-R-T Axes : -06 013 080 degrees QTc Int : 480 ms Sinus tachycardia Otherwise normal ECG Confirmed by RED REID, OLINDA ([id number]), editor at large YISSEL SCHWARTZ ([id number]) on 02/09/2023 2:33:18 PM Referred By: PATRICIA Confirmed By:MELO MOON MD
[2023-02-07] MEDS: Nitroglycerin Oint 1 INCH PACKET TD (06:11)
--- NOTE | 2023-02-07 06:15 | EKG12_ITS ---
Test Reason : CP Blood Pressure : / mmHG Vent. Rate : 067 BPM Atrial Rate : 067 BPM P-R Int : 174 ms QRS Dur : 088 ms QT Int : 446 ms P-R-T Axes : 051 035 104 degrees QTc Int : 471 ms Normal sinus rhythm Possible Left atrial enlargement Nonspecific T wave abnormality Prolonged QT Abnormal ECG When compared with ECG of 06-FEB-2023 10:25, MANUAL COMPARISON REQUIRED, DATA IS UNCONFIRMED Confirmed by RED REID, OLINDA ([id number]), index editor YISSEL SCHWARTZ ([id number]) on 02/10/2023 1:28:57 PM Referred By: DR WANG Confirmed By:MEOL MOON MD
--- NOTE | 2023-02-07 06:40 | NURSING ---
Pt reported chest pressure this am. O2 reapplied. EKG obtained sent to dr chowdary to review. States no stemi. Pt also reported feeling of constipation. offerred metamucil. Pt was resting with eyes closed when returned to room. Did not administer the metamucil.
[2023-02-07 06:45] LABS: Bedside Glucose 122 mg/dL (74-106)
[2023-02-07 07:47] LABS: Hematocrit 37.5 % (40-54); Hemoglobin 12.3 g/dL (13.0-16.5); Mean Corp Hgb Conc 32.8 g/dL (32-36); Mean Corpuscular Hgb 29.1 pg (27.0-32.0); Mean Corpuscular Volume 88.9 fL (80-94); Mean Platelet Vol. 8.8 fl (6.2-12.0); Platelet Count 238 K/mm3 (150-450); RBC Distribution Width CV 13.6 % (11.6-14.6); RBC Distribution Width SD 44.2 fl (35.1-43.9); Red Blood Count 4.22 M/mm3 (4.6-6.2)
[2023-02-07 08:33] LABS: ALB/GLOB Ratio 0.7 RATIO (0.9-2.4); AST(SGOT) 22 U/L (15-37); Alanine Aminotransfer ALT/SGPT 21 U/L (16-61); Albumin, Serum 2.8 g/dL (3.2-5.0); Alkaline Phosphatase 85 U/L (45-117); Anion Gap 8 (5-15); BUN 32 mg/dL (7-18); BUN/Creat Ratio 34.3 RATIO (10-20); Calcium,Total 8.6 mg/dL (8.5-10.1); Chloride 110 mmol/L (98-107); Cholesterol 127 mg/dL (200); Creatinine, Serum 0.93 mg/dL (0.70-1.30); EST Glomerular Filtration Rate 83 mL/min (>60); Est Glom Filt Rate - Afr Amer 101 mL/min (>60); Estimated Creatinine Clearance 59.07 ml/min; Globulin 3.9 g/dL (2.2-4.2); Glucose 124 mg/dL (74-106); High Density Lipoprotein 39 mg/dL; Potassium 4.2 mmol/L (3.5-5.1); Protein, Total 6.7 g/dL (6.4-8.2); Sodium Level 140 mmol/L (136-145); Thyroid Stim Hormone (TSH) 3.43 uIU/mL (0.358-3.74); Triglycerides 83 mg/dL; Very Low Density Lipoprotein 17 mg/dL (5-40)
[2023-02-07 08:57] LABS: Hemoglobin A1c 6.3 % (3.8-5.6)
[2023-02-07] MEDS: Lisinopril 2.5 MG Tablet PO (09:14)
[2023-02-07] MEDS: Clopidogrel Bisulfate 75 MG Tablet PO (09:14)
[2023-02-07] MEDS: Metoprolol Tartrate 25 MG Tablet PO ×2 (09:14→21:28)
[2023-02-07] MEDS: Enoxaparin 40 MG/0.4 ML Syringe SC (09:14)
--- NOTE | 2023-02-07 09:47 | PN.CARD_ITS ---
Subjective Subjective Denies any complaints at present. According to him, last night he had discomfort in his epigastrium/retrosternal area whenever he would lay down. Activity made it better. No orthopnea. No PND. Objective Data Vital Signs: Vital Signs Temp Pulse Resp BP Pulse Ox O2 Del Method O2 Flow Rate 97.6 F L 70 18 122/74 H 92 Room Air 3 02/07/23 09:10 02/07/23 09:14 02/07/23 09:10 02/07/23 09:14 02/07/23 09:10 02/07/23 09:10 02/07/23 07:49 Oxygen Flow Rate (L/min) 3 Oxygen Delivery Method Room Air Weight: 146 lb 6.191 oz Body Mass Index (BMI) 23.6 Intake & Output: Intake and Output for Last 24 Hours 02/05/23 02/06/23 02/07/23 23:59 23:59 23:59 Intake Total 419.38 / 719.38 1420 / 1420 Balance 419.38 / 719.38 1420 / 1420 Lab / Micro Data Result Diagrams: 02/07/23 07:01 02/07/23 07:01 Labs: Laboratory Results - last 24 hr 02/06/23 07:05: PT 14.8, INR 1.2, APTT 31.9 02/06/23 13:25: Troponin I High Sens 375 H*, Triglycerides 117, Cholesterol 139, LDL Cholesterol 73, VLDL Cholesterol 23, HDL Cholesterol 43 02/06/23 16:25: POC Glucose 115 H 02/06/23 21:39: POC Glucose 123 H 02/07/23 06:25: POC Glucose 122 H 02/07/23 07:01: WBC 7.0, RBC 4.22 L, Hgb 12.3 L, Hct 37.5 L, MCV 88.9, MCH 29.1, MCHC 32.8, RDW Std Deviation 44.2 H, RDW Coeff of Ivett 13.6, Plt Count 238, MPV 8.8 02/07/23 07:01: Sodium 140, Potassium 4.2, Chloride 110 H, Carbon Dioxide 22.0, Anion Gap 8, BUN 32 H, Creatinine 0.93, Estim Creat Clear Calc 59.07, Est GFR (MDRD) Af Amer 101, Est GFR (MDRD) Non-Af 83, BUN/Creatinine Ratio 34.3 H, Gl ucose 124 H, Calcium 8.6, Total Bilirubin 0.50, AST 22, ALT 21, Alkaline Phosphatase 85, Total Protein 6.7, Albumin 2.8 L, Globulin 3.9, Albumin/Globulin Ratio 0.7 L, Triglycerides 83, Cholesterol 127, LDL Cholesterol 71, VLDL Cholesterol 17, HDL Cholesterol 39 L, TSH 3.43 02/07/23 07:01: Hemoglobin A1c 6.3 H Rhythm Strip Rhythm Strip: Sinus Rhythm Cardiology Labs/Tests 02/06/23 07:05: PT 14.8, INR 1.2, APTT 31.9 02/06/23 13:25: Triglycerides 117, Cholesterol 139, LDL Cholesterol 73, VLDL Cholesterol 23, HDL Cholesterol 43 02/07/23 07:01: WBC 7.0, RBC 4.22 L, Hgb 12.3 L, Hct 37.5 L, MCV 88.9, MCH 29.1, MCHC 32.8, Plt Count 238, MPV 8.8 02/07/23 07:01: Sodium 140, Potassium 4.2, Chloride 110 H, Carbon Dioxide 22.0, Anion Gap 8, BUN 32 H, Creatinine 0.93, Est GFR (MDRD) Af Amer 101, Est GFR (MDRD) Non-Af 83, BUN/Creatinine Ratio 34.3 H, Glucose 124 H, Calcium 8.6, Total Bilirubin 0.50, Triglycerides 83, Cholesterol 127, LDL Cholesterol 71, VLDL Cholesterol 17, HDL Cholesterol 39 L 02/07/23 07:01: Hemoglobin A1c 6.3 H Rhythm: EKG: ECHO: Stress Test: Cardiac Cath: PCI: CT Surgery: Holter monitor: EPS: PPM: CXR: Chest CT Scan: Radiography Diagnostic Testing: Radiology Impression Echocardiogram 02/06/23 09:47 Interpretation Summary The left ventricular ejection fraction is 50 %. Mild lateral hypokinesis. Diastolic function is indeterminate. The left atrium is severely enlarged. Mild diffuse mitral valve thickening. Moderate (2+) eccentric mitral valve insufficiency. Mild aortic stenosis. Mild (1+) aortic valve insufficiency. Bubble contrast study is negative for PFO/ASD. Ordering Physician: Edenilson Gambino Performed By: rSinivas Mcdonough RCS Physical Exam Narrative Comfortable. No distress. Heart sounds 1 and 2 are normal. No murmurs or rubs are noted. Chest clear to auscultation bilaterally. Abdomen soft. Alert oriented x3. No ankle edema noted. Right radial pulse 2+. Assessment & Plan Assessment/Plan (1) NSTEMI (non-ST elevated myocardial infarction): PLAN: Coronary angiography revealed about 80% long lesion in the LAD. Also long lesion in the left circumflex with 95% bifurcation lesion in the first obtuse marginal. Options discussed with patient again. Referral for evaluation for CABG versus complex PCI versus medical management discussed. He opts for medical management at present. Continue aspirin and Plavix. Continue beta- blockers. Nitrates. (2) Coronary artery disease: PLAN: See #1 above. Continue medical management. (3) Aortic stenosis: PLAN: Mild aortic valve stenosis on echo. For periodic clinical and echo surveillance. (4) Mitral regurgitation: PLAN: Moderate mitral regurgitation noted on echocardiogram. For afterload reduction. Continue lisinopril. Increase dose as tolerated. (5) Hypertension: PLAN: Metoprolol, lisinopril, nitrates (6) Epigastric discomfort: PLAN: With lying down. Patient does not have any pericardial bruit. Discomfort may be result of GERD. Start on proton pump inhibitor. Monitor.
[2023-02-07] MEDS: Isosorbide DN 10 MG Tablet PO ×3 (11:28→21:28)
[2023-02-07] MEDS: 0.9% Saline Lock 10 ML Syringe IV (11:34)
[2023-02-07] MEDS: Ondansetron 4 MG/2 ML Vial IV (11:34)
[2023-02-07 12:05] LABS: Bedside Glucose 130 mg/dL (74-106)
[2023-02-07] MEDS: Pantoprazole Sodium 20 MG Tablet PO ×2 (12:54→21:27)
--- NOTE | 2023-02-07 12:55 | CASEMGMT ---
TOM SMITH Assessment: Face to Face with pt for initial transition planning/care coordination assessment. RN LUIS introduced self and role at [facility], pt voices understanding and consents to assessment. Pt is A/O x4 and answers all questions appropriately at this time. Pt sitting up in bed with and son at bedside. Care providers, pharmacy, and demographics verified/updated. Admitting Dx: CP PCP:[facility] Specialists:Pt denies. Preferred Pharmacy: [facility] Insurance: Self Pay, AA Prescription Benefit: no LNOK: Kameron Ford, son; Martin Julien, neighbor Living Arrangements: Pt lives with in a two story home with 3 steps to enter. Pt reports he is I in ADL's and denies concerns at home. 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 Transportation: Pt hires drivers for transportation. DME/HHC/SNF: Pt has a cane and walker available but does not use. Pt denies hx of HHC or SNF stays. Pt states no concerns with going home at time of dc. Pt states no further concerns/needs. CM to follow. Advised pt to ask CM if any further question/concerns/needs arise, voices understanding. Pt Goal: Home Plan: Home
--- NOTE | 2023-02-07 14:07 | PN.HOSP_ITS ---
Reason for Visit Reason for Visit: Diagnoses Essential (primary) hypertension (02/06/23) Non-ST elevation (NSTEMI) myocardial infarction (02/06/23) Atherosclerotic heart disease of [place] coronary artery without angina pectoris (02/06/23) Nonrheumatic mitral (valve) insufficiency (02/06/23) Nonrheumatic aortic (valve) stenosis (02/06/23) Epigastric pain (02/06/23) Subjective Subjective Follow-up for non-STEMI. Objective Data Objective Data Vital Signs: Vital Signs Temp Pulse Resp BP Pulse Ox O2 Del Method O2 Flow Rate 97.6 F L 70 18 122/74 H 92 Room Air 3 02/07/23 09:10 02/07/23 09:14 02/07/23 09:10 02/07/23 09:14 02/07/23 09:10 02/07/23 09:10 02/07/23 07:49 Oxygen Flow Rate (L/min) 3 Oxygen Delivery Method Room Air Weight: 146 lb 6.191 oz Body Mass Index (BMI) 23.6 Intake & Output: Intake and Output for Last 24 Hours 02/05/23 02/06/23 02/07/23 23:59 23:59 23:59 Intake Total 419.38 / 719.38 1660 / 1660 Balance 419.38 / 719.38 1660 / 1660 Lab / Micro Data Result Diagrams: 02/07/23 07:01 02/07/23 07:01 Labs: Laboratory Results - last 24 hr 02/06/23 13:25: Troponin I High Sens 375 H*, Triglycerides 117, Cholesterol 139, LDL Cholesterol 73, VLDL Cholesterol 23, HDL Cholesterol 43 02/06/23 16:25: POC Glucose 115 H 02/06/23 21:39: POC Glucose 123 H 02/07/23 06:25: POC Glucose 122 H 02/07/23 07:01: WBC 7.0, RBC 4.22 L, Hgb 12.3 L, Hct 37.5 L, MCV 88.9, MCH 29.1, MCHC 32.8, RDW Std Deviation 44.2 H, RDW Coeff of Ivett 13.6, Plt Count 238, MPV 8.8 02/07/23 07:01: Sodium 140, Potassium 4.2, Chloride 110 H, Carbon Dioxide 22.0, Anion Gap 8, BUN 32 H, Creatinine 0.93, Estim Creat Clear Calc 59.07, Est GFR (MDRD) Af Amer 101, Est GFR (MDRD) Non-Af 83, BUN/Creatinine Ratio 34.3 H, Glucose 124 H, Calcium 8.6, Total Bilirubin 0.50, AST 22, ALT 21, Alkaline Phosphatase 85, Total Protein 6.7, Albumin 2.8 L, Globulin 3.9, Albumin/Globulin Ratio 0.7 L, Triglycerides 83, Cholesterol 127, LDL Cholesterol 71, VLDL Cholesterol 17, HDL Cholesterol 39 L, TSH 3.43 02/07/23 07:01: Hemoglobin A1c 6.3 H 02/07/23 11:26: POC Glucose 130 H Rhythm Strip Rhythm Strip: Sinus Rhythm Physical Exam Narrative Patient stated he had anginal pain about 2 hours and mild shortness of breath last night and could not sleep well. He felt mild chest heaviness on left side 3-4/10 intensity localized without radiation. Patient on Nitropaste/ointment. Physical exam General: Alert, Oriented x3, Cooperative HEENT: Atraumatic, PERRLA, EOMI, Normocephalic Oral: No Gingival or Mucosal Lesions/ Ulcerations Neck: Supple, No JVD, Negative Carotid Bruits Lungs: Air entry equal in bilateral lung bases. No crepitation/rhonchi Cardiovascular: Regular rate, Regular Rhythm, Normal S1, Normal S2, systolic murmur over cardiac apex and LLSB and right second ICS. Abdomen: Bowel Sounds Present, Soft, Non Tender, Non-Distended : No renal angle tenderness. No suprapubic tenderness. Extremities: No edema, Capillary Refill Less than 3 Seconds Skin: No rashes, No breakdown Musculoskeletal: No Tenderness to Palpation of Joints or Extremities. ROM inta ct and full. Muscle strength 5/5 at major joints. Neurological: Cranial nerves II-XII grossly intact, DTR 2+/4 and Symmetrical, Neuro grossly intact Psych/Mental Status: Normal Affect, Appropriate. Assessment & Plan Assessment/Plan (1) NSTEMI (non-ST elevated myocardial infarction): PLAN: Plan This is 77-year-old gentleman being admitted for classic angina type pain acid with shortness of breath consistent with non-STEMI. 1. Chest pain/unstable angina, progressed to non-STEMI: Patient is being admitted in PCU. Twelve-lead EKG twice does not show acute ST-T changes history of ischemia. Progressive increase in troponin from 104-243. Patient is started on IV heparin drip with bolus and Plavix. Patient already had 325 mg aspirin by EMS. Continue baby aspirin from tomorrow AM. Nitro ointment 1% every 6 hourly for 24 hours and then as needed. Metoprolol 25 mg twice daily. Lisinopril 2.5 mg twice daily. I asked the patient his and son near the bedside and they are agreeable for going for heart cath. Post Acute Care Nurse Practitioner consulted and discussed with Dr. Dubose. Fasting profile and TSH tomorrow AM. 02/07: Fasting profile shows LDL 73, TG 117, HDL 43. TSH normal. Cardiac cath fi ndings and different options were explained by Dr. Dubose and myself with a diagram. Patient's 2 sons, daughter and present during discussion. Patient has tubular 80% proximal to mid left circumflex, 95% ostial OM1, complex branching restenosis. 80% proximal to mid LAD. RCA tubular 30% mid lesion. Therefore, triple-vessel disease. Echo reported EF 50% mild aortic stenosis, moderate eccentric MR, mild AI with negative for PFO/ASD. Mild lateral hypokinesis. LA severely enlarged. 3 options discussed with the patient's family including medical management, cardiac surgeon referral for evaluation of bypass surgery and high risk PCI. Patient and family want to try medical management for first and want to try for 2 to 3 months to see the difference. Discussed with Dr. Dubose. Patient is on aspirin, Plavix, beta-jefferson, lisinopril and Isordil. High intensity statin. 2. Hypertension: Blood pressure was high systolic in the 170s in EMS and also in ED. More recent pressure is 130/80 controlled. Rest continue medications as mentioned above. 3. Hyperglycemia: Glucose 149. Accu-Cheks before meals and at bedtime and cover with Humalog sliding scale. 02/07: A1c 6.3 consistent with prediabetes. May be candidate for metformin as an outpatient with 1800 ADA diet. I would not start metformin while in the hospital. Total time of the visit including total time spent in counseling or coordination of care, (more than 50% of the total time, spent in obtaining medical informa tion from nurses and other ancillary care providers,explaining to the patient about labs, imaging, diagnosis and management of active complex medical conditions), discussion with grade recorder, explanation of cardiac cath finding to the family members, review of labs and imaging is 40 minutes. VTE prophylaxis: Patient on IV heparin drip. Living will/advanced directive/end of life care: Patient does not have living will or advanced directive. He does not have designated power of patent prosecution attorney of [place] but his and sons are next to him. After discussion of benefits/risks procedures involved with full code, DNR CC arrest and DNR CC, the patient opted for full code. Patient does want artificial life support including intubation, tube feed, ventilator and/chest compression, central venous catheter, vasopressor and DC shock if needed Total time spent in [id number] encounter in discussion of advanced directive 17 minutes. Laboratory Results 02/06/23 13:25: Troponin I High Sens 375 H*, Triglycerides 117, Cholesterol 139, LDL Cholesterol 73, VLDL Cholesterol 23, HDL Cholesterol 43 02/06/23 16:25: POC Glucose 115 H 02/06/23 21:39: POC Glucose 123 H 02/07/23 06:25: POC Glucose 122 H 02/07/23 07:01: WBC 7.0, RBC 4.22 L, Hgb 12.3 L, Hct 37.5 L, MCV 88.9, MCH 29.1, MCHC 32.8, RDW Std Deviation 44.2 H, RDW Coeff of Ivett 13.6, Plt Count 238, MPV 8.8 02/07/23 07:01: Sodium 140, Potassium 4.2, Chloride 110 H, Carbon Dioxide 22.0, Anion Gap 8, BUN 32 H, Creatinine 0.93, Estim Creat Clear Calc 59.07, Est GFR (MDRD) Af Amer 101, Est GFR (MDRD) Non-Af 83, BUN/Creatinine Ratio 34.3 H, Glucose 124 H, Calcium 8.6, Total Bilirubin 0.50, AST 22, ALT 21, Alkaline Phosphatase 85, Total Protein 6.7, Albumin 2.8 L, Globulin 3.9, Albumin/Globulin Ratio 0.7 L, Triglycerides 83, Cholesterol 127, LDL Cholesterol 71, VLDL Cholesterol 17, HDL Cholesterol 39 L, TSH 3.43 02/07/23 07:01: Hemoglobin A1c 6.3 H 02/07/23 11:26: POC Glucose 130 H Clinical Impression(s) from Imaging Studies Chest X-Ray 02/06/23 07:15 IMPRESSION: Bibasilar atelectasis versus infiltrates. Echocardiogram 02/06/23 09:47 Interpretation Summary The left ventricular ejection fraction is 50 %. Mild lateral hypokinesis. Diastolic function is indeterminate. The left atrium is severely enlarged. Mild diffuse mitral valve thickening. Moderate (2+) eccentric mitral valve insufficiency. Mild aortic stenosis. Mild (1+) aortic valve insufficiency. Bubble contrast study is negative for PFO/ASD. Charges/Coding Visit Charges Inpatient E&M: 38442 Subs Hosp L3
[2023-02-07 16:56] LABS: Bedside Glucose 87 mg/dL (74-106)
[2023-02-07] MEDS: MELATONIN 3 MG TABLET PO (21:28)
[2023-02-07] MEDS: Atorvastatin Calcium 40 MG Tablet PO (21:28)
[2023-02-07] MEDS: Lisinopril 5 MG Tablet PO (21:29)
[2023-02-07 22:06] LABS: Bedside Glucose 138 mg/dL (74-106)
[2023-02-08] VITALS (8 sets, daily range): BP systolic 110–131; BP diastolic 62–79; PULSE 66–70; RESP 18; TEMP 36.4–36.5; O2SAT 93–97; BMI 23.8
[2023-02-08] MEDS: Mag Hydrox/Al Hydrox/Simeth 30 ML UDC 15 ML PO ×2 (00:32→04:27)
[2023-02-08] MEDS: Ondansetron 4 MG/2 ML Vial IV ×2 (04:24→14:10)
[2023-02-08] MEDS: 0.9% Saline Lock 10 ML Syringe IV ×2 (04:24→14:10)
[2023-02-08] MEDS: Isosorbide DN 10 MG Tablet PO (05:24)
[2023-02-08 06:29] LABS: Absolute Lymphocyte Count 1.71 X10^3/uL (0.83-4.51); Basophil# 0.04 X10^3/uL; Basophil% 0.5 % (0-1); Eosinophil# 0.34 X10^3/uL; Eosinophils% 4.4 % (0-5); Hematocrit 40.5 % (40-54); Hemoglobin 12.9 g/dL (13.0-16.5); Lymphocyte # 1.71 X10^3/ul (0.83-4.51); Mean Corp Hgb Conc 31.9 g/dL (32-36); Mean Corpuscular Hgb 28.9 pg (27.0-32.0); Mean Corpuscular Volume 90.6 fL (80-94); Mean Platelet Vol. 9.1 fl (6.2-12.0); Monocyte# 0.66 X10^3/uL; Monocyte% 8.5 % (0-10); NRBC Flagged by Analyzer 0 % (0-5); Neutrophil # 4.98 X10^3/uL (2.7-7.7); Neutrophil % 64.1 % (47-70); Platelet Count 248 K/mm3 (150-450); RBC Distribution Width CV 13.5 % (11.6-14.6); RBC Distribution Width SD 44.5 fl (35.1-43.9); Red Blood Count 4.47 M/mm3 (4.6-6.2); White Blood Count 7.8 K/mm3 (4.4-11.0)
[2023-02-08 06:50] LABS: Bedside Glucose 119 mg/dL (74-106)
[2023-02-08 06:58] LABS: Anion Gap 7 (5-15); BUN 32 mg/dL (7-18); BUN/Creat Ratio 33.8 RATIO (10-20); Calcium,Total 8.9 mg/dL (8.5-10.1); Chloride 109 mmol/L (98-107); Creatinine, Serum 0.95 mg/dL (0.70-1.30); EST Glomerular Filtration Rate 82 mL/min (>60); Est Glom Filt Rate - Afr Amer 99 mL/min (>60); Estimated Creatinine Clearance 57.83 ml/min; Glucose 122 mg/dL (74-106); Potassium 4.3 mmol/L (3.5-5.1); Sodium Level 139 mmol/L (136-145)
--- NOTE | 2023-02-08 09:03 | EKG12_ITS ---
Test Reason : CHEST PAIN Blood Pressure : / mmHG Vent. Rate : 067 BPM Atrial Rate : 067 BPM P-R Int : 176 ms QRS Dur : 084 ms QT Int : 456 ms P-R-T Axes : 049 048 092 degrees QTc Int : 481 ms Normal sinus rhythm Possible Left atrial enlargement Nonspecific T wave abnormality Prolonged QT Abnormal ECG When compared with ECG of 07-FEB-2023 06:15, MANUAL COMPARISON REQUIRED, DATA IS UNCONFIRMED Confirmed by RED REID, OLINDA ([id number]), editor trade journal YISSEL SCHWARTZ ([id number]) on 02/10/2023 1:20:40 PM Referred By: TAY Confirmed By:MELO MOON MD
--- NOTE | 2023-02-08 09:03 | RAD_ITS ---
EXAM: XR ABDOMEN, 2 VIEWS CLINICAL INDICATION: abdominal pain TECHNIQUE: Frontal view of the abdomen/pelvis with upright view of the abdomen. COMPARISON: No relevant prior studies available. FINDINGS: LOWER THORAX: Prominent pulmonary interstitial lung markings are suspicious for chronic interstitial lung disease. INTRAPERITONEAL SPACE: No free air. GASTROINTESTINAL TRACT: Unremarkable. Non-obstructive. No bowel or stomach distention. ORGANS: Unremarkable as visualized. No organomegaly. No abnormal calcifications. BONES/JOINTS: No acute pathology. SOFT TISSUES: No acute pathology. RAD/Abd Inc Decub and/or Erect IMPRESSION: 1. No acute findings in the abdomen or pelvis. 2. Prominent pulmonary interstitial lung markings may be due to pulmonary fibrosis. HRCT chest will help clarify if clinically warranted. Electronically Signed: Aurelio Kyle MD at 9:43 EDT ,
[2023-02-08] MEDS: Metoprolol Tartrate 25 MG Tablet PO ×2 (09:36→21:51)
[2023-02-08] MEDS: Lisinopril 5 MG Tablet PO ×2 (09:36→21:52)
[2023-02-08] MEDS: Pantoprazole Sodium 40 MG Tablet PO ×2 (09:36→21:51)
[2023-02-08] MEDS: Clopidogrel Bisulfate 75 MG Tablet PO (09:36)
[2023-02-08] MEDS: Enoxaparin 40 MG/0.4 ML Syringe SC (09:36)
--- NOTE | 2023-02-08 11:04 | PCM.PN.HOSP ---
Reason for Visit Reason for Visit: Diagnoses Essential (primary) hypertension (02/06/23) Non-ST elevation (NSTEMI) myocardial infarction (02/06/23) Atherosclerotic heart disease of [place] coronary artery without angina pectoris (02/06/23) Nonrheumatic mitral (valve) insufficiency (02/06/23) Nonrheumatic aortic (valve) stenosis (02/06/23) Epigastric pain (02/06/23) Subjective Subjective Follow-up for anginal pain, non-STEMI abdominal pain. Objective Data Objective Data Vital Signs: Vital Signs Temp Pulse Resp BP Pulse Ox O2 Del Method O2 Flow Rate 97.7 F L 66 18 124/65 H 95 Nasal Cannula 2 02/08/23 09:35 02/08/23 09:36 02/08/23 09:35 02/08/23 09:36 02/08/23 09:35 02/08/23 09:35 02/08/23 09:35 Oxygen Flow Rate (L/min) 2 Oxygen Delivery Method Nasal Cannula Weight: 147 lb 14.883 oz Body Mass Index (BMI) 23.8 Intake & Output: Intake and Output for Last 24 Hours 02/06/23 02/07/23 02/08/23 23:59 23:59 23:59 Intake Total 419.38 / 719.38 2200 / 2200 400 / 400 Balance 419.38 / 719.38 2200 / 2200 400 / 400 Lab / Micro Data Result Diagrams: 02/08/23 05:25 02/08/23 05:25 Labs: Laboratory Results - last 24 hr 02/07/23 11:26: POC Glucose 130 H 02/07/23 16:29: POC Glucose 87 02/07/23 21:34: POC Glucose 138 H 02/08/23 05:25: WBC 7.8, RBC 4.47 L, Hgb 12.9 L, Hct 40.5, MCV 90.6, MCH 28.9, MCHC 31.9 L, RDW Std Deviation 44.5 H, RDW Coeff of Ivett 13.5, Plt Count 248, MPV 9.1, Immature Gran % (Auto) 0.500, Neut % (Auto) 64.1, Lymph % (Auto) 22.0, Forrest % (Auto) 8.5, Eos % (Auto) 4.4, Baso % (Auto) 0.5, Absolute Neuts (auto) 5.0, Absolute Lymphs (auto) 1.71, Nucleated RBC % 0 02/08/23 05:25: Sodium 139, Potassium 4.3, Chloride 109 H, Carbon Dioxide 23.0, Anion Gap 7, BUN 32 H, Creatinine 0.95, Estim Creat Clear Calc 57.83, Est GFR (MDRD) Af Amer 99, Est GFR (MDRD) Non-Af 82, BUN/Creatinine Ratio 33.8 H, Glucose 122 H, Calcium 8.9 02/08/23 06:28: POC Glucose 119 H Radiography Diagnostic Testing: Radiology Impression Abdomen X-Ray 02/08/23 09:03 IMPRESSION: 1. No acute findings in the abdomen or pelvis. 2. Prominent pulmonary interstitial lung markings may be due to pulmonary fibrosis. HRCT chest will help clarify if clinically warranted. Electronically Signed: Aurelio Kyle MD at 9:43 EDT , Rhythm Strip Rhythm Strip: Sinus Rhythm Physical Exam Narrative Patient colleen is still had his angina pain on the left side last night. He looked uncomfortable not able to sleep yesterday. He also has left upper and epigastric feeling like gas/dyspeptic symptoms. Eructations. Physical exam General: Alert, Oriented x3, Cooperative HEENT: Atraumatic, PERRLA, EOMI, Normocephalic Oral: Oral mucosa moist. No Gingival or Mucosal Lesions/ Ulcerations Neck: Supple, No JVD, Negative Carotid Bruits Lungs: Air entry equal in bilateral lung bases. No crepitation/rhonchi Cardiovascular: Regular rate, Regular Rhythm, Normal S1, Normal S2, systolic murmur over cardiac apex and LLSB and right second ICS. Abdomen: Bowel Sounds Present, Soft, mild tenderness over left upper and epigastric region. Non-Distended. No palpable. No guarding/rigidity. No rebound tenderness : No renal angle tenderness. No suprapubic tenderness. Extremities: No edema, Capillary Refill Less than 3 Seconds Skin: No rashes, No breakdown Musculoskeletal: No Tenderness to Palpation of Joints or Extremities. ROM intact and full. Muscle strength 5/5 at major joints. Neurological: Cranial nerves II-XII grossly intact, DTR 2+/4 and Symmetrical, Neuro grossly intact Psych/Mental Status: Normal Affect, Appropriate. Assessment & Plan Assessment/Plan (1) NSTEMI (non-ST elevated myocardial infarction): PLAN: Plan This is 77-year-old gentleman being admitted for classic angina type pain acid with shortness of breath consistent with non-STEMI. 1. Chest pain/unstable angina, progressed to non-STEMI: Patient is being admitted in PCU. Twelve-lead EKG twice does not show acute ST-T changes history of ischemia. Progressive increase in troponin from 104-243. Patient is started on IV heparin drip with bolus and Plavix. Patient already had 325 mg aspirin by EMS. Continue baby aspirin from tomorrow AM. Nitro ointment 1% every 6 hourly for 24 hours and then as needed. Metoprolol 25 mg twice daily. Lisinopril 2.5 mg twice daily. I asked the patient his and son near the bedside and they are agreeable for going for heart cath. Pouch Making Machine Operator consulted and discussed with Dr. Dubose. 02/07: Fasting profile shows LDL 73, TG 117, HDL 43. TSH normal. Cardiac cath findings and different options were explained by Dr. Dubose and myself with a diagram. Patient's 2 sons, daughter and present during discussion. Patient has tubular 80% proximal to mid left circumflex, 95% ostial OM1, complex branching restenosis. 80% proximal to mid LAD. RCA tubular 30% mid lesion. Therefore, triple-vessel disease. Echo reported EF 50% mild aortic stenosis, moderate eccentric MR, mild AI with negative for PFO/ASD. Mild lateral hypokinesis. LA severely enlarged. 3 options discussed with the patient's family including medical management, cardiac surgeon referral for evaluation of bypass surgery and high risk PCI. Patient and family want to try medical management for first and want to try for 2 to 3 months to see the difference. Discussed with Dr. Dubose. Patient is on aspirin, Plavix, beta-jefferson, lisinopril and Isordil. High intensity statin. 02/08: Patient is still has anginal type pain chest heaviness. Discussed with Dr. Dubose.'s order changed to Imdur. Patient on optimal evidence-based medications for non-STEMI with heart rate in 60s. Blood pressure in 120s. Repeat twelve-lead EKG shows normal sinus rhythm with nonspecific ST abnormality not different from the previous EKG. I felt it is part of chest pain/abdominal pain is probably due to GERD/gastritis with description and location of abdominal pain. PPI increased to 40 mg twice daily. Abdominal x-ray was done individually reviewed. Does not show acute findings in abdomen and pelvis. Although it shows bilateral lower lung atelectasis and chronic dominant interstitial/bronchovascular markings in lower lungs. Patient will need follow-up with pulmonary clinic as an outpatient. We will also need GI outpatient follow-up for EGD. Expecting discharge tomorrow when symptoms are controlled. 2. Hypertension: Blood pressure was high systolic in the 170s in EMS and also in ED. More recent pressure is 130/80 controlled. Rest continue medications as mentioned above. 3. Hyperglycemia: Glucose 149. Accu-Cheks before meals and at bedtime and cover with Humalog sliding scale. 5/6: A1c 6.3 consistent with prediabetes. May be candidate for metformin as an outpatient with 1800 ADA diet. I would not start metformin while in the hospital. Total time of the visit including total time spent in counseling or coordination of care, (more than 50% of the total time, spent in obtaining medical information from nurses and other ancillary care providers,explaining to the patient about labs, imaging, diagnosis and management of active complex medical conditions), discussion with farm machinery erector, explanation of cardiac cath finding to the family members, review of labs and imaging is 40 minutes. VTE prophylaxis: Patient on IV heparin drip. Living will/advanced directive/end of life care: Patient does not have living will or advanced directive. He does not have designated power of fondant machine operator of health but his and sons are next to him. After discussion of benefits/risks procedures involved with full code, DNR CC arrest and DNR CC, the patient opted for full code. Patient does want artificial life support including intubation, tube feed, ventilator and/chest compression, central venous catheter, vasopressor and DC shock if needed Total time spent in [id number] encounter in discussion of advanced directive 17 minutes. Laboratory Results 02/07/23 11:26: POC Glucose 130 H 02/07/23 16:29: POC Glucose 87 02/07/23 21:34: POC Glucose 138 H 02/08/23 05:25: WBC 7.8, RBC 4.47 L, Hgb 12.9 L, Hct 40.5, MCV 90.6, MCH 28.9, MCHC 31.9 L, RDW Std Deviation 44.5 H, RDW Coeff of Ivett 13.5, Plt Count 248, MPV 9.1, Immature Gran % (Auto) 0.500, Neut % (Auto) 64.1, Lymph % (Auto) 22.0, Forrest % (Auto) 8.5, Eos % (Auto) 4.4, Baso % (Auto) 0.5, Absolute Neuts (auto) 5.0, Absolute Lymphs (auto) 1.71, Nucleated RBC % 0 02/08/23 05:25: Sodium 139, Potassium 4.3, Chloride 109 H, Carbon Dioxide 23.0, Anion Gap 7, BUN 32 H, Creatinine 0.95, Estim Creat Clear Calc 57.83, Est GFR (MDRD) Af Amer 99, Est GFR (MDRD) Non-Af 82, BUN/Creatinine Ratio 33.8 H, Glucose 122 H, Calcium 8.9 02/08/23 06:28: POC Glucose 119 H Clinical Impression(s) from Imaging Studies Chest X-Ray 02/06/23 07:15 IMPRESSION: Bibasilar atelectasis versus infiltrates. Echocardiogram 02/06/23 09:47 Interpretation Summary The left ventricular ejection fraction is 50 %. Mild lateral hypokinesis. Diastolic function is indeterminate. The left atrium is severely enlarged. Mild diffuse mitral valve thickening. Moderate (2+) eccentric mitral valve insufficiency. Mild aortic stenosis. Mild (1+) aortic valve insufficiency. Bubble contrast study is negative for PFO/ASD. Charges/Coding Visit Charges Inpatient E&M: 63898 Subs Hosp L3
[2023-02-08] MEDS: Isosorbide Mononitrate 30 MG Tablet PO ×2 (11:05→17:23)
[2023-02-08 11:25] LABS: Bedside Glucose 189 mg/dL (74-106)
[2023-02-08] MEDS: Aspirin E.C. 81 MG Tablet PO (11:41)
--- NOTE | 2023-02-08 16:22 | RAD_ITS ---
STUDY: X-RAY CHEST REASON FOR EXAM: Male, 77 years old. Chest tightness TECHNIQUE: PA and lateral views of the chest. COMPARISON: 02/06/2023 FINDINGS: Alveolar opacity in both lung bases consistent with bibasilar atelectasis or pneumonia. Small bilateral pleural effusions. Normal size heart. Normal mediastinum and unique. Normal visualized pulmonary arteries. There is atherosclerotic tortuosity of the aortic arch and descending thoracic aorta. Normal visualized thoracic spine. Normal visualized ribs, clavicles, and shoulders. There is no demonstrated abnormality of the visualized soft tissue structures of the upper abdomen. RAD/Chest PA and Lateral IMPRESSION: Small bilateral pleural effusions with bibasilar atelectasis or pneumonia. Electronically Signed: Ha Kline MD at 16:33 EDT ,
[2023-02-08] MEDS: Nitroglycerin Oint 1 INCH PACKET TD (17:22)
[2023-02-08] MEDS: Ranolazine 500 MG Tablet PO (18:05)
[2023-02-08] MEDS: Atorvastatin Calcium 40 MG Tablet PO (21:51)
[2023-02-08] MEDS: MELATONIN 3 MG TABLET PO (21:51)
[2023-02-08] MEDS: Senna/Docusate Sodium 1 Tablet 2 TABLET PO (21:51)
[2023-02-09] MEDS: Mag Hydrox/Al Hydrox/Simeth 30 ML UDC 15 ML PO (00:01)
[2023-02-09 03:30] VITALS: BP 114/63; PULSE 68; RESP 16; TEMP 36.6; O2SAT 98
[2023-02-09 05:51] VITALS: BMI 23.8
[2023-02-09 08:35] VITALS: BP 125/54; PULSE 74; RESP 16; TEMP 36.3; O2SAT 94
[2023-02-09] MEDS: Enoxaparin 40 MG/0.4 ML Syringe SC (08:44)
[2023-02-09] MEDS: Ranolazine 500 MG Tablet PO (08:45)
[2023-02-09] MEDS: Isosorbide Mononitrate 60 MG Tablet PO (08:45)
[2023-02-09] MEDS: Pantoprazole Sodium 40 MG Tablet PO (08:45)
[2023-02-09 08:46] VITALS: BP 125/54; PULSE 74
[2023-02-09] MEDS: Metoprolol Tartrate 25 MG Tablet PO (08:46)
[2023-02-09] MEDS: Lisinopril 5 MG Tablet PO (08:46)
[2023-02-09] MEDS: Clopidogrel Bisulfate 75 MG Tablet PO (08:46)
[2023-02-09] MEDS: Aspirin E.C. 81 MG Tablet PO (08:48)
[2023-02-09] MEDS: Polyethylene Glycol 3350 17 GM PACKET PO (11:14)
--- NOTE | 2023-02-09 11:30 | DCINST_ITS ---
Discharge Instructions Diet Discharge Diet: No restrictions Activity Discharge Activity: Return to Normal Activity Weight Bearing Status: Full weight bearing Follow Up Care Test Results: Test results from this visit will be discussed in further detail at your follow- up appointment, if applicable. Discharge Plan Admission Admit Date/Time: 02/06/23 13:26 Primary Reason for Your Visit: non stemi Attending Provider: Michael Combs Primary Care Provider: Lui Lund Consulting Providers: Jami Dubose ; Edenilson Gambino Instructions Additional Instructions / Restrictions: Take one 81 mg aspirin daily-buy this over the counter Take Dulcolax for constipation Discharge Orders/Prescriptions Prescriptions: New atorvastatin 40 mg Tablet 40 mg PO QHS Qty: 30 0RF clopidogrel 75 mg Tablet 75 mg PO DAILY Qty: 30 0RF aspirin 81 mg Tablet,Delayed Release (Dr/Ec) 81 mg PO BREAKFAST Qty: 0 0RF isosorbide mononitrate 60 mg Tablet Extended Release 24 Hr 60 mg PO DAILY Qty: 30 0RF lisinopril 5 mg Tablet 5 mg PO BID Qty: 60 0RF metoprolol tartrate 25 mg Tablet 25 mg PO BID Qty: 60 0RF ranolazine 500 mg Tablet Extended Release 12 Hr 500 mg PO BID Qty: 60 0RF pantoprazole [Protonix] 40 mg tablet,delayed release (DR/EC) 40 mg PO DAILY Qty: 30 0RF Referrals / Follow Up: Lui Lund, PAJoeC [Primary Care Provider] - Within 2 Weeks Jami Dubose MD [Med Staff - Active Staff] - See Referral Note (as scheduled) Disposition Disposition (needs filled in before D/C Order can be placed): Home, Self Care
--- NOTE | 2023-02-09 11:52 | DS.PCM_ITS ---
Providers Date of Admission: 02/06/23 Date of Discharge: 02/09/23 Primary Care Physician: Dr. Lui Lund PA-C Consultations 02/06/23 09:41 Consult: Cardiology Routine Consulting Provider: Jami Dubose Reason for Consult: NSTEMI EMERGENT Consult: No MD Notified: Yes Date Notified: 02/06/23 Time Notified: 09:43 Method of Notification: Text Reason For Visit: CHEST PAIN Diagnosis Discharge Diagnosis (1) NSTEMI (non-ST elevated myocardial infarction): Status: Acute Code(s): I21.4 - Non-ST elevation (NSTEMI) myocardial infarction Plan 1. Non-STEMI #2 essential hypertension #3 prediabetes #4 occlusive coronary disease in the LAD, first obtuse marginal, and circumflex arteries #5 mild aortic stenosis #6 moderate mitral valve insufficiency Medications at Discharge Home Medications aspirin 81 mg tablet,delayed release 81 mg PO BREAKFAST #0 tabs 02/09/23 atorvastatin 40 mg tablet 40 mg PO QHS #30 tabs 02/09/23 clopidogrel 75 mg tablet 75 mg PO DAILY #30 tabs 02/09/23 isosorbide mononitrate 60 mg tablet,extended release 24 hr 60 mg PO DAILY #30 tabs 02/09/23 lisinopril 5 mg tablet 5 mg PO BID #60 tabs 02/09/23 metoprolol tartrate 25 mg tablet 25 mg PO BID #60 tabs 02/09/23 pantoprazole 40 mg tablet,delayed release (Protonix) 40 mg PO DAILY #30 tabs 02/09/23 ranolazine 500 mg tablet,extended release,12 hr 500 mg PO BID #60 tabs 02/09/23 Hospital Course Operations None Procedures 2-D Echocardiogram and Cardiac catheterization Summary of Care Provided Minutes Spent on Discharge: 32 Hospital Course: This 77-year-old white male was seen in the emergency room at [facility] with chief complaint of midsternal to left-sided chest pain, he stated he had nausea and diaphoresis and shortness of breath also. He was brought to the emergency room by squad, he was treated with aspirin and nitro and the pain resolved prior to arrival to the ER. EKG revealed no acute injury pattern, lab obtained was remarkable for a slightly elevated troponin at 108 and a slightly elevated BUN at 29. Patient was admitted to PCU, serial cardiac enzymes were obtained and were elevated indicating a non-STEMI. Patient underwent cardiac catheterization which showed occlusive coronary disease in the LAD, obtuse marginal branch, and circumflex artery, due to the nature of the blockages, treatment options were discussed with the patient and the patient opted for medical management rather than be transferred out to a tertiary hospital for care. Patient had no recurrence of his chest discomfort and he stabilized on medication. On 02/09/2023, patient was seen and examined: On examination he appeared in good health and spirits. Vital signs as documented. Skin warm and dry and without overt rashes. Neck without JVD, neck was supple, trachea midline, thyroid was normal. Lungs clear bilaterally, normal air movement was noted. Heart exam notable for regular rhythm, normal sounds and absence of murmurs, rubs or gallops. Abdomen unremarkable and without evidence of organomegaly, masses, or abdominal aortic enlargement. Bowel sounds are present, abdomen is not distended. Extremities nonedematous, no cyanosis was noted, no clubbing was noted. Neuro: Cranial nerves II through XII are grossly intact, no focal motor deficits were noted, sensation to light touch and pinprick intact, motor exam 5/ 5 throughout. Psych: Patient is alert and oriented x3, he does not appear anxious or depressed, he does not appear agitated. Patient appears stable for discharge on 02/09/2023. Weight / BMI Weight Weight: 67.1 kg Body Mass Index (BMI) 23.8 ABG / Lab / Microbiology Data Result Diagrams: 02/08/23 05:25 02/08/23 05:25 Radiography Diagnostic Testing: Radiology Impression Chest X-Ray 02/08/23 16:22 IMPRESSION: Small bilateral pleural effusions with bibasilar atelectasis or pneumonia. Electronically Signed: Ha Kline MD at 16:33 EDT , D/C Instructions Discharge Diet: No restrictions Weight Bearing Status: Full weight bearing Meaningful Use Info Meaningful Use Diagnoses (Choose all that apply): AMI AMI/Post PCI/Angioplasty Aspirin given w/in 24hrs of arrival?: Yes ASA at discharge?: Yes Antiplatelet Therapy at Discharge:: Yes Statins at discharge?: Yes Nate/ARB at discharge?: Yes Beta Herb at discharge?: Yes Done w/ Acute HI measure.: Yes Documented LVEF (%): 50 Discharge Plan Admission Admit Date/Time: 02/06/23 13:26 Primary Reason for Your Visit: non stemi Attending Provider: Michael Combs Primary Care Provider: Lui Lund Consulting Providers: Jami Dubose ; Edenilson Gambino Instructions Additional Instructions / Restrictions: Take one 81 mg aspirin daily-buy this over the counter Take Dulcolax for constipation Discharge Orders/Prescriptions Prescriptions: New atorvastatin 40 mg Tablet 40 mg PO QHS Qty: 30 0RF clopidogrel 75 mg Tablet 75 mg PO DAILY Qty: 30 0RF aspirin 81 mg Tablet,Delayed Release (Dr/Ec) 81 mg PO BREAKFAST Qty: 0 0RF isosorbide mononitrate 60 mg Tablet Extended Release 24 Hr 60 mg PO DAILY Qty: 30 0RF lisinopril 5 mg Tablet 5 mg PO BID Qty: 60 0RF metoprolol tartrate 25 mg Tablet 25 mg PO BID Qty: 60 0RF ranolazine 500 mg Tablet Extended Release 12 Hr 500 mg PO BID Qty: 60 0RF pantoprazole [Protonix] 40 mg tablet,delayed release (DR/EC) 40 mg PO DAILY Qty: 30 0RF Referrals / Follow Up: Jami Dubose MD [Med Staff - Active Staff] - 03/09/23 10:30 am (appointment is with [facility] Lui Lund, PA-C [Primary Care Provider] - Within 2 Weeks Disposition Disposition (needs filled in before D/C Order can be placed): Home, Self Care Charges/Coding Visit Charges Inpatient E&M: 50927 Disch Hosp >30min
[2023-02-09 12:03] VITALS: BP 125/54; PULSE 74; RESP 16; TEMP 36.3; O2SAT 94
--- NOTE | 2023-02-09 14:27 | PHA.DC.MC ---
Pharmacy Service has performed discharge medication reconciliation and counseling for this patient. 1. ASPIRIN 81MG PO BREAKFAST 2. ATORVASTATIN 40MG PO QHS 3. CLOPIDOGREL 75MG PO DAILY 4. ISOSORBIDE MONONITRATE 60MG PO DAILY 5. LISINOPRIL 5MG PO BID 6. METOPROLOL TARTRATE 25MG PO BID 7. PANTOPRAZOLE 40MG PO DAILY 8. RANOLAZINE 500MG PO BID The patient's discharge medication list was reviewed for discrepancies and discrepancies were resolved. Home Medications aspirin 81 mg tablet,delayed release 81 mg PO BREAKFAST #0 tabs 02/09/23 atorvastatin 40 mg tablet 40 mg PO QHS #30 tabs 02/09/23 clopidogrel 75 mg tablet 75 mg PO DAILY #30 tabs 02/09/23 isosorbide mononitrate 60 mg tablet,extended release 24 hr 60 mg PO DAILY #30 tabs 02/09/23 lisinopril 5 mg tablet 5 mg PO BID #60 tabs 02/09/23 metoprolol tartrate 25 mg tablet 25 mg PO BID #60 tabs 02/09/23 pantoprazole 40 mg tablet,delayed release (Protonix) 40 mg PO DAILY #30 tabs 02/09/23 ranolazine 500 mg tablet,extended release,12 hr 500 mg PO BID #60 tabs 02/09/23 The patient was counseled on the following discharge medications and changes in medications for homegoing were reviewed. The Reason for Use, instructions for use, and potential side effects were reviewed for all new medications. The patient's questions regarding all of their medications were answered. The patient was able to verbally demonstrate an understanding of their discharge medications.
== END 2023-02-09 15:23 | disposition home or self-care (01) | DRG 282 ==
LOC: ED 07:53 → PCU 08:27
PROVIDERS: Admitting Provider Internal Medicine; Emergency Provider Emergency Medicine; PCP Physician Assistant; Visit Provider Internal Medicine
DX: I21.4 Non-ST elevation (NSTEMI) myocardial infarction (principal); I08.0 Rheumatic disorders of both mitral and aortic valves; I25.110 Atherosclerotic heart disease of native coronary artery with unstable angina pectoris; I10 Essential (primary) hypertension; K29.70 Gastritis, unspecified, without bleeding; K21.9 Gastro-esophageal reflux disease without esophagitis; R73.03 Prediabetes; Z87.891 Personal history of nicotine dependence
CPT/HCPCS: 36415; 71046; 74019; 80048; 80053; 80061; 82962; 83036; 83735; 84443; 84484; 85025; 85027; 85610; 85730; 93005; 93306; 93454; 97802; 99152; 99285; J7030; J7120; Q9957; Q9967; A4216; C1769; C1894; C8929; J2405